=== PATIENT | male | born 1995 | race Caucasian/White ===

== ENCOUNTER 2017-08-31 10:01 | Emergency (ER) | payer BC ==
--- NOTE | 2017-08-31 11:42 | RAD REPORT ---
EXAM DESCRIPTION: RAD - Chest Pa And Lat (2 Views) - 08/31/2017 11:14 am CLINICAL HISTORY: Cough COMPARISON: None. TECHNIQUE: PA and lateral views of the chest were obtained. FINDINGS: The lungs are clear. Heart size is normal and central vasculature is within normal limit s. No pleural effusion or pneumothorax seen. No acute bony finding noted. No aortic abnormality. IMPRESSION: No acute cardiopulmonary process.
[2017-08-31] MEDS ORDERED: NA CHLORIDE 0.9% 1,000 ML ONE (11:47)
[2017-08-31] MEDS ORDERED: ONDANSETRON 4 MG/2 ML VIAL ONE (11:47)
[2017-08-31 12:10] LABS: Absolute Lymphocytes (CBC) 1.1 K/uL (0.7-4.9); Absolute Neutrophil 3.7 K/uL (1.8-8.0); Basophils % 0.6 % (0-1.3); Eosinophils % 3.7 % (0-4.4); Hematocrit 45.8 % (39.6-49.0); Lymphocytes % 18.5 % (15.3-44.8); MCH 29.8 pg (27.0-35.0); MCV 88.2 fL (80-100); MPV 8.2 fL (7.6-11.3); Monocytes % 15.9 % (3.3-12.3); RBC Red Blood Cell Count 5.19 M/uL (4.33-5.43)
[2017-08-31 12:18] LABS: Bicarbonate 30 mEq/L (21-31); Glucose Level 92 mg/dL (65-120); Lipase 19 U/L (22-51); Sodium Level 137 mEq/L (135-145)
[2017-08-31 12:24] LABS: ALT/SGPT 16 IU/L (10-60); AST/SGOT 21 IU/L (10-42); Albumin 4.8 g/dL (3.2-5.5); Alkaline Phosphatase 69 IU/L (42-121); BUN Blood Urea Nitrogen 11 mg/dL (6-20); Bilirubin Direct 0.2 mg/dL (0-0.2); Bilirubin Total 1.3 mg/dL (0.3-1.2); Protein, Total 8.1 g/dL (6.0-8.3)
--- NOTE | 2017-08-31 12:28 | ER ---
Nurse's Notes [facility] Name: Valente Bhatti Age: 21 yrs Sex: Male : 1995 Arrival Date: 08/31/2017 Time: 10:05 Bed 19 Private MD: Out, [facility] Diagnosis: Otitis media, unspecified, left ear;Bronchitis, not specified as acute or chronic Presentation: 08/31 10:08 Presenting complaint: Patient states: cough and vomiting x 2-3 days ago. Pt states "I aa5 started throwing up from the cough". Transition of care: patient was not received from another setting of care. Onset of symptoms was August 2017. Risk Assessment: Do you want to hurt yourself or someone else? Patient reports no desire to harm self or others. Initial Sepsis Screen: Does the patient meet any 2 criteria? No. Patient's initial sepsis screen is negative. Does the patient have a suspected source of infection? No. Patient's initial sepsis screen is negative. Care prior to arrival: None. 10:08 Method Of Arrival: Ambulatory aa5 10:08 Acuity: VENITA 4 aa5 Historical: - Allergies: 10:10 No Known Allergies; aa5 - PMHx: 10:10 None; aa5 - PSHx: 10:10 None; aa5 - Immunization history:: Adult Immunizations up to date. - Social history:: Smoking status: Patient uses tobacco products, smokes one-half pack cigarettes per day. - Ebola Screening: : No symptoms or risks identified at this time. Screenin:15 Abuse screen: Denies threats or abuse. Nutritional screening: No deficits noted. em Tuberculosis screening: No symptoms or risk factors identified. Fall Risk None identified. Assessment: 10:25 General: Appears in no apparent distress. comfortable, Behavior is calm, cooperative. em Pain: Complains of pain in right lower quadrant and left lower quadrant Pain currently is 8 out of 10 on a pain scale. Quality of pain is described as crampy, Pain began 2-3 days ago. Neuro: Level of Consciousness is awake, alert, obeys commands, Oriented to person, place, time, situation, Appropriate for age. Cardiovascular: Capillary refill < 3 seconds Patient's skin is warm and dry. Respiratory: Reports cough that is non-productive, Airway is patent Respiratory effort is even, unlabored, Respiratory pattern is regular, symmetrical, Breath sounds are clear bilaterally. GI: Abdomen is flat, Bowel sounds present X 4 quads. : No signs and/or symptoms were reported regarding the genitourinary system. EENT: No signs and/or symptoms were reported regarding the EENT system. Derm: Skin is intact, Skin is pink, warm \\T\\ dry. Musculoskeletal: Range of motion: intact in all extremities. 10:35 Reassessment: Patient appears in no apparent distress at this time. I agree with above iw assessment by Luigi Minaya LVN. 11:30 Reassessment: Patient appears in no apparent distress at this time. Patient and/or em family updated on plan of care and expected duration. Pain level reassessed. Patient is alert, oriented x 3, equal unlabored respirations, skin warm/dry/pink. 12:57 Reassessment: Patient appears in no apparent distress at this time. Patient and/or em family updated on plan of care and expected duration. Pain level reassessed. Patient is alert, oriented x 3, equal unlabored respirations, skin warm/dry/pink. Patient states feeling better. 13:44 Reassessment: Patient appears in no apparent distress at this time. Patient and/or em family updated on plan of care and expected duration. Pain level reassessed. Patient is alert, oriented x 3, equal unlabored respirations, skin warm/dry/pink. Patient states feeling better. Vital Signs: 10:10 BP 139 / 94; Pulse 66; Resp 16 S; Temp 98.3(TE); Pulse Ox 98% on R/A; Weight 63.5 kg aa5 (R); Height 5 ft. 10 in. (177.80 cm) (R); Pain 8/10; 11:11 BP 106 / 65; Pulse 51; Resp 18; Pulse Ox 97% on R/A; Pain 8/10; em 12:58 BP 119 / 83; Pulse 52; Resp 18; Pulse Ox 99% on R/A; em 13:43 BP 103 / 76; Pulse 55; Resp 18; Pulse Ox 99% on R/A; Pain 6/10; em 10:10 Body Mass Index 20.09 (63.50 kg, 177.80 cm) aa5 ED Course: 10:05 Patient arrived in ED. mr 10:06 Out, [facility] is Private Physician. mr 10:09 Triage completed. aa5 10:09 Arm band placed on. aa5 10:14 Luigi Minaya LVN is Primary Nurse. em 10:20 [facility] Peters[facility] snw 10:20 Tomas Valenzuela MD is Attending Physician. snw 11:11 X-ray completed. Patient tolerated procedure well. Patient moved back from radiology. jb2 11:12 Chest Pa And Lat (2 Views) XRAY In Process Unspecified. EDMS 11:14 Patient has correct armband on for positive identification. Bed in low position. Call em light in reach. Adult w/ patient. 11:14 No provider procedures requiring assistance completed. em 12:00 Initial lab(s) drawn, by me, sent to lab. Inserted saline lock: 20 gauge in right em1 antecubital area, using aseptic technique. Blood collected. 13:50 IV discontinued, intact, bleeding controlled, No redness/swelling at site. Pressure iw dressing applied. Administered Medications: 12:00 Drug: NS 0.9% 1000 ml Route: IV; Rate: 1 bolus; Site: right antecubital; em 12:45 Follow up: IV Status: Completed infusion; IV Intake: 1000ml em 12:03 Drug: Zofran 4 mg Route: IVP; Site: right antecubital; iw 12:45 Follow up: Response: No adverse reaction; Nausea is decreased em Intake: 12:45 IV: 1000ml; Total: 1000ml. em Outcome: 12:27 Discharge ordered by MD. snw 13:48 Discharged to home ambulatory, with family. iw 13:48 Condition: good 13:48 Discharge instructions given to patient, Instructed on discharge instructions, follow up and referral plans. medication usage, Demonstrated understanding of instructions, follow-up care, medications, Prescriptions given X 1. 13:49 Patient left the ED. em Signatures: Dispatcher [employer] EDWY Nancy Petersen FNP-C WAVE SOLDERING MACHINE OPERATOR-León Kevin Maciej Verma jb2 Luigi Minaya LVN LVN em Eva Roque, Manish Glass RNic em1 Yessenia Burns RN RN aa5
--- NOTE | 2017-08-31 12:28 | EDPHYS ---
Physician Documentation [facility] Name: Valente Bhatti Age: 21 yrs Sex: Male : 1995 Arrival Date: 08/31/2017 Time: 10:05 Bed 19 Private MD: Out, [facility] ED Physician Tomas Valenzuela HPI: 08/31 12:53 This 21 yrs old Male presents to ER via Ambulatory with complaints of snw Vomiting, Cough. 12:53 The patient presents to the emergency department with nausea, vomiting. Onset: The snw symptoms/episode began/occurred suddenly, 3 day(s) ago, and became persistent. Possible causes: unknown. The symptoms are aggravated by cough. Associated signs and symptoms: Pertinent positives: nausea, vomiting, cough. Severity of symptoms: At their worst the symptoms were moderate. The patient has not experienced similar symptoms in the past. The patient has not recently seen a physician. Historical: - Allergies: 10:10 No Known Allergies; aa5 - PMHx: 10:10 None; aa5 - PSHx: 10:10 None; aa5 - Immunization history:: Adult Immunizations up to date. - Social history:: Smoking status: Patient uses tobacco products, smokes one-half pack cigarettes per day. - Ebola Screening: : No symptoms or risks identified at this time. ROS: 12:52 Eyes: Negative for injury, pain, redness, and discharge. snw 12:52 Neck: Negative for injury, pain, and swelling, Cardiovascular: Negative for chest pain, palpitations, and edema. 12:52 Back: Negative for injury and pain, : Negative for injury, bleeding, discharge, and swelling, MS/Extremity: Negative for injury and deformity, Skin: Negative for injury, rash, and discoloration, Neuro: Negative for headache, weakness, numbness, tingling, and seizure. 12:52 Constitutional: Positive for fatigue, fever, malaise, poor PO intake. 12:52 ENT: Positive for sore throat. 12:52 Respiratory: Positive for cough. 12:52 Abdomen/GI: Positive for nausea and vomiting. Exam: 12:37 Constitutional: This is a well developed, well nourished patient who is awake, alert, snw and in no acute distress. Head/Face: Normocephalic, atraumatic. Eyes: Pupils equal round and reactive to light, extra-ocular motions intact. Lids and lashes normal. Conjunctiva and sclera are non-icteric and not injected. Cornea within normal limits. Periorbital areas with no swelling, redness, or edema. 12:37 Neck: Trachea midline, no thyromegaly or masses palpated, and no cervical lymphadenopathy. Supple, full range of motion without nuchal rigidity, or vertebral point tenderness. No Meningismus. Chest/axilla: Normal chest wall appearance and motion. Nontender with no deformity. No lesions are appreciated. Cardiovascular: Regular rate and rhythm with a normal S1 and S2. No gallops, murmurs, or rubs. Normal PMI, no JVD. No pulse deficits. 12:37 Back: No spinal tenderness. No costovertebral tenderness. Full range of motion. Skin: Warm, dry with normal turgor. Normal color with no rashes, no lesions, and no evidence of cellulitis. MS/ Extremity: Pulses equal, no cyanosis. Neurovascular intact. Full, normal range of motion. Neuro: Awake and alert, GCS 15, oriented to person, place, time, and situation. Cranial nerves II-XII grossly intact. Motor strength 5/5 in all extremities. Sensory grossly intact. Cerebellar exam normal. Normal gait. 12:37 ENT: External ear(s): are unremarkable, Ear canal(s): are normal, TM's: dullness, on the left, erythema, Examination of the other ear shows no obvious abnormality, Nose: Mouth: no acute changes, Posterior pharynx: erythema, that is mild, Dental exam: 12:37 Respiratory: the patient does not display signs of respiratory distress, Respirations: normal, Breath sounds: are clear throughout, cough - congestion. 12:37 Abdomen/GI: Inspection: abdomen appears normal, Bowel sounds: normal, Palpation: abdomen is soft and non-tender. Vital Signs: 10:10 BP 139 / 94; Pulse 66; Resp 16 S; Temp 98.3(TE); Pulse Ox 98% on R/A; Weight 63.5 kg aa5 (R); Height 5 ft. 10 in. (177.80 cm) (R); Pain 8/10; 11:11 BP 106 / 65; Pulse 51; Resp 18; Pulse Ox 97% on R/A; Pain 8/10; em 12:58 BP 119 / 83; Pulse 52; Resp 18; Pulse Ox 99% on R/A; em 13:43 BP 103 / 76; Pulse 55; Resp 18; Pulse Ox 99% on R/A; Pain 6/10; em 10:10 Body Mass Index 20.09 (63.50 kg, 177.80 cm) aa5 MDM: 10:20 Patient medically screened. snw 12:51 Data reviewed: vital signs, nurses notes. Data interpreted: Pulse oximetry: on room air snw is 97 %. Interpretation: normal. Counseling: I had a detailed discussion with the patient and/or guardian regarding: the historical points, exam findings, and any diagnostic results supporting the discharge/admit diagnosis, lab results, radiology results, the need for outpatient follow up, to return to the emergency department if symptoms worsen or persist or if there are any questions or concerns that arise at home. Special discussion: Based on the history and exam findings, there is no indication for further emergent testing or inpatient evaluation. I discussed with the patient/guardian the need to see the primary care provider for further evaluation of the symptoms. 08/31 11:45 Order name: Basic Metabolic Panel; Complete Time: 12:26 snw 08/31 11:45 Order name: CBC with Diff; Complete Time: 12: snw 08/31 11:45 Order name: Hepatic Function; Complete Time: 12: snw 08/31 11:45 Order name: Lipase; Complete Time: 12:26 snw 08/31 11:45 Order name: Strep; Complete Time: 12:26 snw 08/31 10:22 Order name: Chest Pa And Lat (2 Views) XRAY; Complete Time: 11:44 snw 08/31 11:45 Order name: IV Saline Lock; Complete Time: 12:00 snw 08/31 11:45 Order name: Labs collected and sent; Complete Time: 12:00 snw 08/31 12:18 Order name: Throat Culture EDMS Administered Medications: 12:00 Drug: NS 0.9% 1000 ml Route: IV; Rate: 1 bolus; Site: right antecubital; em 12:45 Follow up: IV Status: Completed infusion; IV Intake: 1000ml em 12:03 Drug: Zofran 4 mg Route: IVP; Site: right antecubital; iw 12:45 Follow up: Response: No adverse reaction; Nausea is decreased em Disposition: 16:46 Co-signature as Attending Physician, Tomas Valenzuela MD I agree with the assessment and kdr plan of care. Disposition: 08/31/17 12:27 Discharged to Home. Impression: Otitis media, unspecified, left ear, Bronchitis, not specified as acute or chronic. - Condition is Stable. - Discharge Instructions: Acute Bronchitis, Otitis Media, Adult, Fever, Adult, Cool Mist Vaporizers, Rehydration, Adult. - Prescriptions for Zithromax 200 mg/5 ml Oral Suspension for Reconstitution - take 7.5 milliliter by ORAL route one time for 1 day - then take (5mg/kg/day) 3.8 milliliters by oral route on days 2,3,4, and 5.; 24 milliliter. - Work release form, Medication Reconciliation Form, Thank You Letter, Antibiotic Education, Prescription Opioid Use form. - Follow up: Private Physician; When: 2 - 3 days; Reason: Recheck today's complaints, Continuance of care, Re-evaluation by your physician. Follow up: Emergency Department; When: As needed; Reason: Worsening of condition. - Notes: Delsym syrup as directed Signatures: Dispatcher [employer] EDMS Tomas Valenzuela MD MD [facility] Nancy Petersen, LACEY-C INVASIVE PHYSICIAN-Csnw Luigi Minaya, SPINDRAW OPERATOR SPINDRAW OPERATOR em Eva Roque, JOSE GARCIA iw Yessenia Burns RN RN aa5 Corrections: (The following items were deleted from the chart) 13:49 12:27 08/31/2017 12:27 Discharged to Home. Impression: Otitis media, unspecified, left em ear; Bronchitis, not specified as acute or chronic. Condition is Stable. Forms are Medication Reconciliation Form, Thank You Letter, Antibiotic Education, Prescription Opioid Use. Follow up: Private Physician; When: 2 - 3 days; Reason: Recheck today's complaints, Continuance of care, Re-evaluation by your physician. Follow up: Emergency Department; When: As needed; Reason: Worsening of condition. snw
== END 2017-08-31 13:49 | disposition home or self-care (01) ==
LOC: ER 10:01
DX: H66.92 Otitis media, unspecified, left ear (principal); J40 Bronchitis, not specified as acute or chronic; F17.210 Nicotine dependence, cigarettes, uncomplicated; R11.2 Nausea with vomiting, unspecified
CPT/HCPCS: 36415; 71046; 80048; 80076; 83690; 85025; 87070; 87081; 96361; 96374; 99284; J2405; J7030